=== PATIENT | female | born 1975 | race Caucasian/White ===

== ENCOUNTER 2016-05-01 10:21 | Emergency (ER) | payer MEDICAID, OTHER ==
[2016-05-01] MEDS ORDERED: NS 1,000 ML IV ONE ×2 (11:41→12:27)
[2016-05-01 11:44] LABS: % IMMATURE GRANULYOCYTES 0.4 % (0.0-1.1); ABSOLUTE IMMATURE GRANULOCYTES 0.03 10^3/uL (0.00-0.10); ADD DIFF? NO; ADD MORPH? NO; ADD SCAN? NO; ATYPICAL LYMPHOCYTE FLAG 10 (0-99); FRAGMENT RBC FLAG 0 (0-99); HEMATOCRIT 47.8 % (38.0-47.0); HEMOGLOBIN 15.9 g/dL (12.6-16.3); LEFT SHIFT FLG 0 (0-99); LIPEMIA HEMOLYSIS FLAG 80 (0-99); MEAN CELL HEMOGLOBIN 26.8 pg (27.9-34.1); MEAN CELL HEMOGLOBIN CONCENTR. 33.3 g/dL (32.4-36.7); MEAN CELL VOLUME 80.5 fL (81.5-99.8); MEAN PLATELET VOLUME 8.9 fL (8.7-11.7); PLATELET CLUMPS FLAG 30 (0-99); PLATELET COUNT 248 10^3/uL (150-400); RED BLOOD CELL COUNT 5.94 10^6/uL (4.18-5.33)
[2016-05-01 12:04] LABS: ANION GAP 10 mEq/L (8-16); CALCIUM 9.3 mg/dL (8.5-10.4); CARBON DIOXIDE 22 mEq/l (22-31); CHLORIDE 103 mEq/L (97-110); CREATININE 0.8 mg/dL (0.6-1.0); GLOMERULAR FILTRATION RATE > 60; GLUCOSE 82 mg/dL (70-100); POTASSIUM 4.5 mEq/L (3.5-5.2); SODIUM 135 mEq/L (134-144)
--- NOTE | 2016-05-01 12:44 | EDPHY ---
H & P Time Seen by Provider: 05/01/16 11:31 HPI/ROS: CHIEF COMPLAINT: Abdominal pain, diarrhea HISTORY OF PRESENT ILLNESS: 41-year-old female presents to the emergency department complaining of diffuse abdominal pain. Patient states over last 1 week she has had intermittent diffuse abdominal pain. She has felt nauseous although no vomiting. She has felt subjective fevers and chills. No urinary symptoms. Today the patient developed worsening abdominal pain and watery diarrhea. She thinks that she has had about 5 episodes of diarrhea. And she denies chest pain or difficulty breathing. She has some mild low back pain as well. No urinary symptoms. Last menstrual period was 1 week ago and she denies . Denies headache. Denies recent travel. No known ill contacts. REVIEW OF SYSTEMS: Constitutional: Subjective fevers, chills Eyes: No double or blurry vision. ENT: No sore throat. Respiratory: No cough, no shortness of breath. Cardiac: No chest pain. Gastrointestinal: Abdominal pain, diarrhea as above. No vomiting. Genitourinary: No dysuria. Musculoskeletal: No neck or back pain. Skin: No rashes. Neurological: No headache. Past Medical/Surgical History: History of miscarriage Social History: She is single and lives in [place] and works as a massage therapist. Smoking Status: Never smoked Physical Exam: General Appearance: Alert, no distress. Afebrile. Eyes: Pupils equal and round. Extraocular motions are all intact. ENT: Mouth: Mucous membranes moist. Respiratory: No wheezing, rhonchi, or rales, lungs are clear to auscultation. Cardiovascular: Regular rate and rhythm. Gastrointestinal: Abdomen is soft. Diffusely tender to palpate especially in the right lower quadrant. She has some mild rebound tenderness as well. No guarding or masses noted. No CVA tenderness bilaterally. Neurological: Alert and oriented x 3, cranial nerves II through XII grossly intact Skin: Warm and dry, no rashes. Musculoskeletal: Nontender to palpate along the cervical, thoracic or lumbar spine. Neck is supple. Extremities: Full range of motion and no peripheral edema. Psychiatric: Patient is oriented X 3, there is no agitation. Constitutional: Initial Vital Signs Temperature (C) 36.3 C 05/01/16 10:31 Heart Rate 80 05/01/16 10:31 Respiratory Rate 18 05/01/16 10:31 Blood Pressure 105/66 05/01/16 10:31 O2 Sat (%) 99 05/01/16 10:31 O2 Delivery Mode Room Air Allergies/Adverse Reactions: Penicillins Allergy (Verified 06/06/13 09:42) Home Medications: Medication Instructions Recorded NK [No Known Home Meds] 06/06/13 Medical Decision Making - Diagnostics Imaging: CT imaging of the abdomen pelvis: There is an 8 mm hhi-kpper-th-characterize hypodensity in the right hepatic lobe. 2. Nondiagnostic assessment of the appendix. 3. Coronary mild enterocolitis. 4. Query mild pelvic venous congestion. This is reported to me by Dr. Blanco Sandoval. ED Course/Re-evaluation: 41-year-old female presents to the emergency department with diffuse abdominal pain and diarrhea. The patient is tender to palpate the right lower quadrant. She states her pain is getting worse today. I recommended CT imaging of the abdomen and pelvis. Pros and cons of this were reviewed with the patient who verbalized understanding and agreed. CT imaging of the abdomen pelvis reveals evidence of enteritis, however unable to visualize the appendix. I spoke with Dr. Blanco Sandoval and he did not feel that ultrasound would be of benefit given her dilated loops of small bowel and evidence of enteritis. I spoke with Dr. Mark Bee, on-call general surgeon, who came to evaluate the patient and did not feel that the patient had acute appendicitis. He feels comfortable discharging this patient home. He recommended that she come back if she has any other change in symptoms or any other concerns. Differential Diagnosis: Including but not limited to gastroenteritis, acute appendicitis, urinary tract infection, pyelonephritis, dehydration, colitis - Data Points Laboratory Results: Laboratory Results 05/01/16 11:35 05/01/16 11:35 05/01/16 05/01/16 05/01/16 12:45 11:35 11:35 WBC RBC Hgb Hct MCV MCH MCHC RDW Plt Count MPV Neut % (Auto) Lymph % (Auto) [place] % (Auto) Eos % (Auto) Baso % (Auto) Nucleat RBC Rel Count Absolute Neuts (auto) Absolute Lymphs (auto) Absolute Monos (auto) Absolute Eos (auto) Absolute Basos (auto) Absolute Nucleated RBC Immature Gran % Immature Gran # Sodium 135 mEq/L mEq/L (134-144) Potassium 4.5 mEq/L mEq/L (3.5-5.2) Chloride 103 mEq/L mEq/L (97-110) Carbon Dioxide 22 mEq/l mEq/l (22-31) Anion Gap 10 mEq/L mEq/L (8-16) BUN 12 mg/dL mg/dL (7-23) Creatinine 0.8 mg/dL mg/dL (0.6-1.0) Estimated GFR > 60 Glucose 82 mg/dL mg/dL (70-100) Calcium 9.3 mg/dL mg/dL (8.5-10.4) Beta HCG, Qual NEGATIVE Stool Occult Bld Scrn NEGATIVE (NEGATIVE) 05/01/16 11:35 WBC 7.03 10^3/uL 10^3/uL (3.80-9.50) RBC 5.94 10^6/uL H 10^6/uL (4.18-5.33) Hgb 15.9 g/dL g/dL (12.6-16.3) Hct 47.8 % H % (38.0-47.0) MCV 80.5 fL L fL (81.5-99.8) MCH 26.8 pg L pg (27.9-34.1) MCHC 33.3 g/dL g/dL (32.4-36.7) RDW 14.0 % % (11.5-15.2) Plt Count 248 10^3/uL 10^3/uL (150-400) MPV 8.9 fL fL (8.7-11.7) Neut % (Auto) 84.4 % H % (39.3-74.2) Lymph % (Auto) 9.2 % L % (15.0-45.0) [place] % (Auto) 4.4 % L % (4.5-13.0) Eos % (Auto) 1.0 % % (0.6-7.6) Baso % (Auto) 0.6 % % (0.3-1.7) Nucleat RBC Rel Count 0.0 % % (0.0-0.2) Absolute Neuts (auto) 5.93 10^3/uL 10^3/uL (1.70-6.50) Absolute Lymphs (auto) 0.65 10^3/uL L 10^3/uL (1.00-3.00) Absolute Monos (auto) 0.31 10^3/uL 10^3/uL (0.30-0.80) Absolute Eos (auto) 0.07 10^3/uL 10^3/uL (0.03-0.40) Absolute Basos (auto) 0.04 10^3/uL 10^3/uL (0.02-0.10) Absolute Nucleated RBC 0.00 10^3/uL 10^3/uL (0-0.01) Immature Gran % 0.4 % % (0.0-1.1) Immature Gran # 0.03 10^3/uL 10^3/uL (0.00-0.10) Sodium Potassium Chloride Carbon Dioxide Anion Gap BUN Creatinine Estimated GFR Glucose Calcium Beta HCG, Qual Stool Occult Bld Scrn Microbiology Results: MICROBIOLOGY 05/01/16 12:45 Stool Fecal Leukocyte Stain - Final Medications Given: Discontinued Medications Sodium Chloride (Ns) 1,000 mls @ 0 mls/hr IV ONCE ONE PRN Reason: Wide Open Stop: 05/01/16 11:42 Last Admin: 05/01/16 11:50 Dose: 1,000 mls Sodium Chloride (Ns) 1,000 mls @ 0 mls/hr IV ONCE ONE PRN Reason: Wide Open Stop: 05/01/16 12:28 Last Admin: 05/01/16 13:02 Dose: 1,000 mls Departure - Departure Disposition: Home, Routine, Self-Care Clinical Impression: Abdominal pain Qualifiers: Abdominal location: right lower quadrant Qualified Code(s): R10.31 - Right lower quadrant pain Diarrhea Qualifiers: Diarrhea type: unspecified type Qualified Code(s): R19.7 - Diarrhea, unspecified Condition: Good Instructions: Acute Diarrhea (ED), Abdominal Pain (ED) Additional Instructions: Abdominal Pain: Return to the Emergency Department immediately for increasing pain, fever, vomiting, or if not completely better in 8-12 hours. Referrals: Mark Bee MD [Medical Doctor] - 2-3 days, if not improved (General surgeon on-call)
[2016-05-01] MEDS ORDERED: IOPAMIDOL (ISOVUE-300) 100 ML BTL IV ONE (12:45)
[2016-05-01 13:11] VITALS: RESP 16
[2016-05-01 14:59] VITALS: BP 116/69; PULSE 72; TEMP 97.5; O2SAT 98
== END 2016-05-01 14:59 | disposition home or self-care (01) ==
DX: R10.31 Right lower quadrant pain (principal); R19.7 Diarrhea, unspecified
CPT/HCPCS: Q9967